=== PATIENT | female | born 1985 | race Caucasian/White ===

== ENCOUNTER 2017-12-03 22:22 | Emergency (ER) | payer SELFPAY ==
[~2017-12-03] VITALS: Ht 157.5 cm; Wt 86.4 kg
[~2017-12-03 22:22] MED LIST: Z.0.NO CURRENT MEDS
[2017-12-03 22:25] VITALS: BP 149/81; PULSE 80; RESP 16; TEMP 98.5; O2SAT 99
[2017-12-03] MEDS ORDERED: HYDR50TA94 PO (22:53)
--- NOTE | 2017-12-03 23:01 | PD ---
HPI Chief Complaint: GI Complaint Time Seen by Provider: 22:58 Travel History International Travel<30 days: No Contact w/Intl Traveler<30days: No Traveled to known affect area: No History of Present Illness HPI 32-year-old female presents to emergency department for evaluation of loose stools 3 months with increasing frequency and looseness in the last 3 weeks. She reports that she now has diarrhea multiple times a day. Denies any abdominal pain. Denies any blood in her stool. Denies any fever or chills. She has not sought evaluation for this as of yet. She has no other symptoms to report. PFSH Past Medical History Anxiety: Yes Diabetes: No Patient Takes Glucophage: No Diminished Hearing: No Psychiatric: Yes Immunizations Current: Yes Tetanus Vaccination: > 5 Years Influenza Vaccination: Yes ?: Not LMP: 11/26/2017 Dilation and Curettage (D&C): Yes (AUG 07, 2008) Past Surgical History Appendectomy: Yes Other Surgery: Yes (LYMPH NODE REMOVED, WISDOM TEETH REMOVAL) Social History Alcohol Use: Yes (A FEW DAYS A WEEK) Tobacco Use: Yes (HALF PPD) Substance Use: No Allergies-Medications (Allergen,Severity, Reaction): Coded Allergies: naproxen (Unverified Allergy, Severe, Nausea/Vomiting, 12/03/17) amoxicillin (Unverified Allergy, Mild, ITCH, 12/03/17) Reported Meds & Prescriptions Reported Meds & Active Scripts Active Reported Hydroxyzine HCl 50 Mg Tab 50 Mg PO BID Review of Systems Except as stated in HPI: all other systems reviewed are Neg Physical Exam Narrative GENERAL: Well-nourished, well-developed female patient in no acute distress. SKIN: Focused skin assessment warm/dry. HEAD: Normocephalic. EYES: No scleral icterus. No injection or drainage. NECK: Supple, trachea midline. No JVD or lymphadenopathy. CARDIOVASCULAR: Regular rate and rhythm without murmurs, gallops, or rubs. RESPIRATORY: Breath sounds equal bilaterally. No accessory muscle use. GASTROINTESTINAL: Abdomen soft, non-tender, nondistended. No guarding. No rebound tenderness MUSCULOSKELETAL: No cyanosis, or edema. BACK: Nontender without obvious deformity. No CVA tenderness. PSYCHIATRIC: No delusional thought processes. No hallucinations. Data Data Last Documented VS Vital Signs Date Time Temp Pulse Resp B/P (MAP) Pulse Ox O2 Delivery O2 Flow Rate FiO2 12/03/17 23:57 12/03/17 22:25 98.5 80 16 99 Orders Orders Complete Blood Count With Diff (12/03/17 22:30) Comprehensive Metabolic Panel (12/03/17 22:30) Urinalysis - C+S If Indicated (12/03/17 22:30) Lipase (12/03/17 22:30) Ed Urine Pregnancytest Poc (12/03/17 22:30) Sodium Chlor 0.9% 1000 Ml Inj (Ns 1000 M (12/03/17 23:15) Iv Access Insert/Monitor (12/03/17 23:01) Ed Discharge Order (12/03/17 23:41) Labs Laboratory Tests Test 12/03/17 22:45 White Blood Count 11.6 TH/MM3 Red Blood Count 4.36 MIL/MM3 Hemoglobin 14.6 GM/DL Hematocrit 41.1 % Mean Corpuscular Volume 94.2 FL Mean Corpuscular Hemoglobin 33.5 PG Mean Corpuscular Hemoglobin Concent 35.5 % Red Cell Distribution Width 13.2 % Platelet Count 315 TH/MM3 Mean Platelet Volume 7.5 FL Neutrophils (%) (Auto) 65.7 % Lymphocytes (%) (Auto) 27.7 % Monocytes (%) (Auto) 4.5 % Eosinophils (%) (Auto) 1.6 % Basophils (%) (Auto) 0.5 % Neutrophils # (Auto) 7.6 TH/MM3 Lymphocytes # (Auto) 3.2 TH/MM3 Monocytes # (Auto) 0.5 TH/MM3 Eosinophils # (Auto) 0.2 TH/MM3 Basophils # (Auto) 0.1 TH/MM3 CBC Comment DIFF FINAL Differential Comment Urine Color YELLOW Urine Turbidity HAZY Urine pH 6.0 Urine Specific [place] 1.019 Urine Protein NEG mg/dL Urine Glucose (UA) NEG mg/dL Urine Ketones NEG mg/dL Urine Occult Blood NEG Urine Nitrite NEG Urine Bilirubin NEG Urine Urobilinogen LESS THAN 2.0 MG/DL Urine Leukocyte Esterase NEG Urine RBC 3 /hpf Urine WBC 1 /hpf Urine Squamous Epithelial Cells 14 /hpf Urine Amorphous Sediment RARE Urine Mucus FEW /lpf Microscopic Urinalysis Comment CULT NOT INDICATED Blood Urea Nitrogen 13 MG/DL Creatinine 0.83 MG/DL Random Glucose 93 MG/DL Total Protein 8.4 GM/DL Albumin 4.0 GM/DL Calcium Level 8.9 MG/DL Alkaline Phosphatase 168 U/L Aspartate Amino Transf (AST/SGOT) 16 U/L Alanine Aminotransferase (ALT/SGPT) 30 U/L Total Bilirubin 0.2 MG/DL Sodium Level 136 MEQ/L Potassium Level 3.7 MEQ/L Chloride Level 102 MEQ/L Carbon Dioxide Level 25.2 MEQ/L Anion Gap 9 MEQ/L Estimat Glomerular Filtration Rate 81 ML/MIN Lipase 100 U/L MDM Medical Decision Making Medical Screen Exam Complete: Yes Emergency Medical Condition: Yes Medical Record Reviewed: Yes Differential Diagnosis Colitis versus diverticulitis versus malabsorption diarrhea versus gluten intolerance versus gastroenteritis Narrative Course 32-year-old female presents to the emergency department for evaluation of frequent bowel movements. Patient appears without distress. Abdominal exam is benign. Patient does not have a bowel movement while she is in the emergency department. Lab work is without acute concern. She'll be discharged home, encouraged to follow-up with gastroenterology and return immediately with any acute worsening symptoms. Diagnosis Primary Impression: Diarrhea Qualified Codes: R19.7 - Diarrhea, unspecified Referrals: Mussel Farmer Primary Care Physician Patient Instructions: Chronic Diarrhea (ED), General Instructions Additional Instructions: Binding diet may help reduce your diarrhea Avoid abrasive and acidic foods Avoid juices Follow-up with gastroenterology. Outpatient colonoscopy may be warranted Return immediately to the emergency department with any acute worsening of symptoms Med/Other Pt SpecificInfo: No Change to Meds Disposition: 01 DISCHARGE HOME Condition: Stable DelcidYessenia mitchell VANNESA Dec 03, 2017 23:01
[2017-12-03 23:05] LABS: AMORPHOUS SEDIMENT, URINE RARE; BILIRUBIN, URINE NEG (NEG); BLOOD, URINE NEG (NEG); GLUCOSE,URINE NEG (NEG); KETONE, URINE NEG (NEG); MUCUS URINE FEW /lpf (OCC); NITRITE,URINE NEG (NEG); SQUAMOUS EPITHELIAL CELL URINE 14 /hpf (0-5); URINE COLOR YELLOW (YELLW/STRAW); URINE LEUKOCYTE ESTERASE NEG (NEG)
[2017-12-03 23:09] LABS: AUTOMATED NEUTROPHIL # 7.6 TH/MM3 (1.8-7.7); BASOPHIL # 0.1 TH/MM3 (0-0.2); BASOPHIL % 0.5 % (0.0-2.0); EOSINOPHIL # 0.2 TH/MM3 (0-0.4); EOSINOPHIL % 1.6 % (0.0-4.0); HEMATOCRIT 41.1 % (35.0-46.0); HEMOGLOBIN 14.6 GM/DL (11.6-15.3); LYMPH % 27.7 % (9.0-44.0); LYMPHOCYTE # 3.2 TH/MM3 (1.0-4.8); MEAN CELL VOLUME 94.2 FL (80.0-100.0); MEAN CORPUSCULAR HEMOGLOBIN 33.5 PG (27.0-34.0); MEAN CORPUSCULAR HGB CONC 35.5 % (32.0-36.0); MEAN PLATELET VOLUME 7.5 FL (7.0-11.0); MONO % 4.5 % (0.0-8.0); MONOCYTE # 0.5 TH/MM3 (0-0.9); NEUT % 65.7 % (16.0-70.0); PLATELET COUNT 315 TH/MM3 (150-450); RED BLOOD COUNT 4.36 MIL/MM3 (4.00-5.30); RED CELL DISTRIBUTION WIDTH 13.2 % (11.6-17.2); WHITE BLOOD COUNT 11.6 TH/MM3 (4.0-11.0)
[2017-12-03] MEDS ORDERED: SODIUM CHLOR 0.9% 1000 ML INJ 1,000 ML IV ONE (23:15)
[2017-12-03 23:34] LABS: ALT (GPT) 30 U/L (10-53); AST (GOT) 16 U/L (15-37); BICARBONATE 25.2 MEQ/L (21.0-32.0); BLOOD UREA NITROGEN 13 MG/DL (7-18); CALCIUM 8.9 MG/DL (8.5-10.1); CHLORIDE 102 MEQ/L (98-107); CREATININE 0.83 MG/DL (0.50-1.00); GLOMERULAR FILTRATION RATE 81 ML/MIN (>89); GLUCOSE,RANDOM 93 MG/DL (74-106); LIPASE 100 U/L (73-393); SODIUM (NA) 136 MEQ/L (136-145)
[2017-12-03 23:35] LABS: ALKALINE PHOSPHATASE 168 U/L (45-117); TOTAL BILIRUBIN ADULT 0.2 MG/DL (0.2-1.0); TOTAL PROTEIN 8.4 GM/DL (6.4-8.2)
== END 2017-12-04 00:05 | disposition home or self-care (01) ==
LOC: NEPD 22:22
DX: R19.7 Diarrhea, unspecified (principal); F41.9 Anxiety disorder, unspecified; F17.200 Nicotine dependence, unspecified, uncomplicated
CPT/HCPCS: 80053; 81001; 83690; 84703; 85025; 96360; 99284; J7030